=== PATIENT | male | born 1985 | race American Indian/Alaskan Native ===

== ENCOUNTER 2017-11-17 16:00 | Emergency (ER) | payer MEDICAID ==
[2017-11-17 16:14] VITALS: BP 112/64
== END 2017-11-17 19:00 | disposition left against medical advice (07) ==
LOC: ED 16:00
DX: M79.601 Pain in right arm (principal); Z53.21 Procedure and treatment not carried out due to patient leaving prior to being seen by health care provider

== ENCOUNTER 2020-06-21 05:42 | Emergency (ER) | payer MEDICAID ==
[2020-06-21] MEDS ORDERED: IBUPROFEN 800 MG TAB PO ONE (06:03)
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
[2020-06-21 06:54] VITALS: BP 121/83
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
== END 2020-06-21 07:24 | disposition home or self-care (01) ==
LOC: ED 05:42
DX: S46.911A Strain of unspecified muscle, fascia and tendon at shoulder and upper arm level, right arm, initial encounter (principal); F17.200 Nicotine dependence, unspecified, uncomplicated; F12.10 Cannabis abuse, uncomplicated; Z98.890 Other specified postprocedural states; X58.XXXA Exposure to other specified factors, initial encounter; Y93.89 Activity, other specified; Y92.89 Other specified places as the place of occurrence of the external cause; Y99.8 Other external cause status